=== PATIENT | female | born 1980 | race Caucasian/White ===

== ENCOUNTER 2021-12-09 11:55 | Emergency (ER) | payer OTHER ==
[~2021-12-09 11:55] MED LIST: ATARAX25 MG PO; MACROBID100 MG PO; PERCOCET 5-3251 EACH PO; ZOFRAN4 MG PO
[2021-12-09 13:04] LABS: BASOPHIL 0.3 % (0-2); EOSINOPHIL 0 % (0-5); HCT 39.6 % (37.0-47.0); HGB 13.3 g/dl (12.5-16.0); LYMPHOCYTE 4.8 % (15-48); MCH 30.8 pg (25.0-31.0); MCHC 33.6 g/dL (32.0-36.0); MCV 91.7 fL (78.0-100.0); MONOCYTE 3.7 % (0-12); MPV 9.3 fL (6.0-9.5); NEUTROPHIL 88.9 % (41-80); NRBC 0; PLT 366 K/uL (150-400); RBC 4.32 M/uL (4.20-5.40); RDW 14.2 % (11.5-14.0)
[2021-12-09 13:18] LABS: WBC 37.8 K/uL (4.0-10.5)
[2021-12-09 13:19] LABS: ALBUMIN 3.8 g/dL (3.4-5.0); BILIRUBIN - TOTAL 1.1 mg/dL (0.2-1.0); BUN/CREAT RATIO (CALC) 19.2 RATIO; CREATININE 1.72 mg/dL (0.51-0.95); GLOBULIN (CALCULATION) 4.8 g/dL; POTASSIUM 3.5 mmol/L (3.5-5.1); TOTAL PROTEIN 8.6 g/dL (6.4-8.2)
[2021-12-09 13:27] LABS: LACTIC ACID 2.8 mmol/L (0.4-1.9)
[2021-12-09 13:35] LABS: CORONAVIRUS 2019 SARS-COV-2 NEGATIVE (NEGATIVE); INFLUENZA A NAA NEGATIVE (NEGATIVE)
[2021-12-09 15:06] LABS: BILIRUBIN 1+ mg/dL (NEGATIVE); BLOOD 2+ Ery/uL (NEGATIVE); COLOR YELLOW (YELLOW); GLUCOSE (U) NORMAL (NORMAL); LEUKOCYTES 2+ Leu/uL (NEGATIVE); NITRITE POSITIVE (NEGATIVE); PROTEIN 2+ mg/dL (NEGATIVE); SPECIFIC GRAVITY >=1.030 (1.001-1.030); UROBILINOGEN 0.2 mg/dL (0.2-1.0)
[2021-12-09 15:11] LABS: CLARITY HAZY (CLEAR)
[2021-12-09 15:13] LABS: BACTERIA 3+; URINARY WBC TNTC
[2021-12-09 15:15] LABS: MUCOUS TRACE
[2021-12-09 15:16] LABS: GRANULAR CASTS MODERATE
== END 2021-12-09 20:13 | disposition other institution (70) ==
LOC: FER 11:55
PROVIDERS: Nurse Practitioner Family
DX: N13.6 Pyonephrosis (principal); E86.0 Dehydration; Z88.0 Allergy status to penicillin; Z88.6 Allergy status to analgesic agent; Z20.822 Contact with and (suspected) exposure to COVID-19
CPT/HCPCS: 36415; 80053; 81001; 82150; 83605; 83690; 84145; 85025; 87040; 87088; J1170; J1885; J2405; J7030; U0002

== ENCOUNTER 2022-04-08 07:26 | Inpatient (IN) | payer OTHER ==
[~2022-04-08] VITALS: Ht 157.5 cm; Wt 80.5 kg
[2022-04-08 08:09] LABS: BASOPHIL 0.3 % (0-2); EOSINOPHIL 0.2 % (0-5); HCT 38.1 % (37.0-47.0); HGB 12.8 g/dl (12.5-16.0); LYMPHOCYTE 11.5 % (15-48); MCH 29.4 pg (25.0-31.0); MCHC 33.6 g/dL (32.0-36.0); MCV 87.6 fL (78.0-100.0); MONOCYTE 9.1 % (0-12); MPV 9.9 fL (6.0-9.5); NEUTROPHIL 78.3 % (41-80); NRBC 0; PLT 239 K/uL (150-400); RBC 4.35 M/uL (4.20-5.40); RDW 13.5 % (11.5-14.0)
[2022-04-08 08:24] LABS: INR 1.34 (0.9-1.2); PROTHROMBIN TIME 16.2 SECONDS (11.9-13.9); PTT 35.2 SECONDS (24.9-34.6)
[2022-04-08 08:36] LABS: LACTIC ACID 0.8 mmol/L (0.4-1.9)
[2022-04-08 09:09] LABS: CORONAVIRUS 2019 SARS-COV-2 NEGATIVE (NEGATIVE); INFLUENZA A NAA NEGATIVE (NEGATIVE)
[2022-04-08 09:30] LABS: BILIRUBIN 1+ mg/dL (NEGATIVE); BLOOD 2+ Ery/uL (NEGATIVE); CLARITY HAZY (CLEAR); COLOR YELLOW (YELLOW); GLUCOSE (U) NORMAL (NORMAL); LEUKOCYTES TRACE Leu/uL (NEGATIVE); NITRITE NEGATIVE (NEGATIVE); PROTEIN 2+ mg/dL (NEGATIVE)
[2022-04-08 09:34] LABS: ECSTASY (MDMA) NEGATIVE (NEGATIVE); MARIJUANA (THC) POSITIVE (NEGATIVE); METHADONE NEGATIVE (NEGATIVE); OPIATES NEGATIVE (NEGATIVE)
[2022-04-08 09:35] LABS: AMPHETAMINES NEGATIVE (NEGATIVE); BARBITURATES NEGATIVE (NEGATIVE); OXYCODONE NEGATIVE (NEGATIVE)
[2022-04-08 09:41] LABS: BACTERIA 2+
[2022-04-08 09:56] LABS: BILIRUBIN - TOTAL 0.5 mg/dL (0.2-1.0); BUN/CREAT RATIO (CALC) 12.8 RATIO; CREATININE 1.48 mg/dL (0.51-0.95); GLOBULIN (CALCULATION) 5.3 g/dL; POTASSIUM 3.1 mmol/L (3.5-5.1); TOTAL PROTEIN 8.3 g/dL (6.4-8.2)
[2022-04-08] MEDS ORDERED: DIAZEPAM 5MG TAB5 MG PO (13:13)
[2022-04-08] MEDS ORDERED: SEROQUEL 100MG100 MG PO (13:18)
[2022-04-08 16:01] LABS: CREATININE 1.31 mg/dL (0.51-0.95); POTASSIUM 3.4 mmol/L (3.5-5.1)
[2022-04-08 20:28] LABS: BUN/CREAT RATIO (CALC) 11.5 RATIO; CREATININE 1.39 mg/dL (0.51-0.95); POTASSIUM 3.1 mmol/L (3.5-5.1)
[2022-04-09 02:28] LABS: BUN/CREAT RATIO (CALC) 10.9 RATIO; CREATININE 1.37 mg/dL (0.51-0.95); POTASSIUM 3.8 mmol/L (3.5-5.1)
[2022-04-09 06:42] LABS: HCT 31.7 % (37.0-47.0); HGB 10.4 g/dl (12.5-16.0); MCH 29.2 pg (25.0-31.0); MCHC 32.8 g/dL (32.0-36.0); RBC 3.56 M/uL (4.20-5.40); WBC 6.8 K/uL (4.0-10.5)
[2022-04-09 06:50] LABS: INR 1.06 (0.9-1.2); PROTHROMBIN TIME 13.5 SECONDS (11.9-13.9)
[2022-04-09 08:06] LABS: ALBUMIN 2.4 g/dL (3.4-5.0); BILIRUBIN - DIRECT 0.2 mg/dL (0.00-0.20); BILIRUBIN - TOTAL 0.5 mg/dL (0.2-1.0); CREATININE 1.36 mg/dL (0.51-0.95); GLOBULIN (CALCULATION) 4.2 g/dL; POTASSIUM 3.9 mmol/L (3.5-5.1); TOTAL PROTEIN 6.6 g/dL (6.4-8.2)
[2022-04-09] MEDS ORDERED: SACCHAROMYCES250 MG PO (11:03)
[2022-04-09] MEDS ORDERED: CEFDINIR300 MG PO (11:03)
== END 2022-04-09 11:50 | disposition home or self-care (01) | DRG 872 ==
LOC: FER 07:26 → FMS 10:19
PROVIDERS: Internal Medicine; ADMIT Family Medicine
DX: A41.9 Sepsis, unspecified organism (principal); N12 Tubulo-interstitial nephritis, not specified as acute or chronic; E87.1 Hypo-osmolality and hyponatremia; N17.9 Acute kidney failure, unspecified; N13.30 Unspecified hydronephrosis; E87.6 Hypokalemia; R65.20 Severe sepsis without septic shock; Z20.822 Contact with and (suspected) exposure to COVID-19; N20.0 Calculus of kidney; E66.9 Obesity, unspecified; R79.1 Abnormal coagulation profile; E86.0 Dehydration; Z88.5 Allergy status to narcotic agent; Z68.32 Body mass index [BMI] 32.0-32.9, adult; Z88.1 Allergy status to other antibiotic agents; Z90.49 Acquired absence of other specified parts of digestive tract; Z90.710 Acquired absence of both cervix and uterus; Z82.49 Family history of ischemic heart disease and other diseases of the circulatory system; Z28.310 Unvaccinated for COVID-19
CPT/HCPCS: 36415; 80048; 80053; 80061; 80076; 80305; 81001; 82550; 83605; 83690; 83735; 84145; 84439; 84443; 84484; 85025; 85610; 85730; 87040; 87076; 87088; 87186; 93005; 94010; J0696; J1650; J2185; J2405; J2550; J3475; J7040; J7050; J7120; U0002